=== PATIENT | female | born 1940 | race Caucasian/White ===

== ENCOUNTER → 2016-09-15 | Outpatient (CLI) | payer MEDICARE, OTHER | LOC: GMAM 17:49 | PROVIDERS: ATTEND Family Medicine | DX: G44.209 Tension-type headache, unspecified, not intractable (principal) ==

== ENCOUNTER → 2016-09-16 | Outpatient (CLI) | payer MEDICARE, OTHER ==
--- NOTE | 2016-09-16 11:29 | MRI ---
EXAM DESCRIPTION: Brain MRI. CLINICAL HISTORY: Two months of headaches comma continuous every day. COMPARISON: None. TECHNIQUE: Multiplanar, multisequence MR images were acquired without IV contrast. FINDINGS: The midline structures are unremarkable. Negative for Chiari malformation. Mild degenerative change about the dens. No restricted diffusion is noted on today's study. Flow voids are maintained within the intracranial vessels. FLAIR sequences reveal only mild involutional changes related age. No evidence of periventricular white matter disease from chronic microvascular ischemic change. The basilar cisterns are widely patent. No paranasal sinus disease. The orbits and globes are. Mastoid air cells are clear. 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 IMPRESSION: No findings to account for patient's headache. Mild involutional changes related age. No evidence of chronic microvascular ischemic change. Electronically signed by: Ghassan Rosario MD 09/16/2016 11:26
== END ==
LOC: MRI 06:39
PROVIDERS: ATTEND Family Medicine
DX: G44.201 Tension-type headache, unspecified, intractable (principal)

== ENCOUNTER → 2016-09-17 | Outpatient (CLI) | payer MEDICARE, OTHER | END | disposition home or self-care (01) | LOC: GMAM 11:24 | PROVIDERS: ATTEND Family Medicine | DX: G44.201 Tension-type headache, unspecified, intractable (principal) ==

== ENCOUNTER → 2016-09-21 | Outpatient (CLI) | payer MEDICARE, OTHER | END | disposition home or self-care (01) | LOC: GMAM 10:35 | PROVIDERS: ATTEND Family Medicine | DX: G44.209 Tension-type headache, unspecified, not intractable (principal); G44.201 Tension-type headache, unspecified, intractable ==

== ENCOUNTER → 2016-11-11 | Outpatient (CLI) | payer MEDICARE, OTHER ==
--- NOTE | 2016-11-12 09:41 | MRI ---
EXAM DESCRIPTION: Shoulder,Left CLINICAL HISTORY: 76 years, Female, shoulder pain radiating down the arm to the elbow with limited range of motion. No history of trauma. COMPARISON: None TECHNIQUE: MRI of the left shoulder was performed with multiplanar multi sequence imaging according to our usual protocol. FINDINGS: There is a small left shoulder joint effusion. There is also subacromial and subdeltoid bursal effusions. Evaluation of the rotator cuff shows a very high-grade partial-thickness tear of the supraspinatus and infraspinatus. These are articular surface partial-thickness tears. The supraspinatus tear is for all practical purposes full-thickness with only a minor thin remaining West of tendon on the bursal side. The bursal surface tear is delaminated retracted on the order of about 13 mm there is granulation tissue in the gap. Subscapularis shows advanced tendinopathy but no tear observed. There is significant volume loss of the supraspinatus and infraspinatus muscle bellies and there is grade 2 fatty marbling observed. Degenerative diffuse scuffing of the glenoid labrum is present. Long head biceps is intact at the biceps labral complex but there is a longitudinal split thickness tear of the long head biceps. AC joint shows moderate capsular thickening and edema. There is a small joint effusion. The patient has a type III acromion process with slight anterior and lateral downsloping. IMPRESSION: 1. Very high-grade partial thickness articular surface tears of supraspinatus and infraspinatus with advanced subscapularis tendinopathy 2. Degenerative labral changes and longitudinal split-thickness tear of long head biceps 3. Glenohumeral effusion and subacromial and subdeltoid bursal effusions Electronically signed by: Christiano Winchester MD 11/12/2016 9:40 AM CDT
== END | disposition home or self-care (01) ==
LOC: MRI 12:45
PROVIDERS: ATTEND Family Medicine
DX: M75.102 Unspecified rotator cuff tear or rupture of left shoulder, not specified as traumatic (principal); M25.512 Pain in left shoulder; M25.412 Effusion, left shoulder

== ENCOUNTER → 2017-02-04 | Outpatient (CLI) | payer MEDICARE, OTHER ==
--- NOTE | 2017-02-04 18:04 | CT ---
EXAM: Chest w/Contrast CLINICAL INDICATION: 76-year-old female with shortness of breath. COMPARISON: None. EXAMINATION: CT of the chest was performed with intravenous contrast. This exam was performed according to our departmental dose optimization program which includes use of automated exposure control, adjustment of the mA and/or kV according to patient size and/or use of iterative reconstruction technique. FINDINGS: Chest: Evaluation through the lungs reveals no focal opacity, pleural effusion or pneumothorax. RIGHT upper lobe pulmonary micronodule measuring 3 mm, (series 2, image 30). RIGHT patchy groundglass foci of the RIGHT upper lobe may be secondary to scarring, sequela of infectious or inflammatory process. Mild reticulonodular opacification of the dependent lower lobe may represent dependent atelectasis. Correlation with interstitial lung disease protocol may be considered. Small hiatal hernia. There is minimal dependent basilar atelectasis and scarring. The tracheobronchial airways are patent. No significant mediastinal or axillary lymphadenopathy by CT measurement criteria. Limited evaluation of the upper abdomen shows no acute intra-abdominal abnormalities. Focal area of hypoattenuation at the level of the LEFT kidney hilum exophytic and measuring approximately 12 mm with hypoattenuating contents suggestive of a simple cyst. Cholecystectomy clips. The osseous structures reveal diffuse demineralization and degenerative change. IMPRESSION: 1. The lungs are clear without focal opacity, pleural effusion or pneumothorax. 2. No specific findings are noted to suggest etiology of the patient's shortness of breath. 3. RIGHT upper lobe pulmonary micronodule measuring 3 mm. 4. RIGHT patchy groundglass foci of the RIGHT upper lobe may be secondary to scarring, sequela of infectious or inflammatory process. 5. Mild reticulonodular opacification of the dependent lower lobe may represent dependent atelectasis. Correlation with interstitial lung disease protocol may be considered. 2017 Fleischner Society Recommendations for Single Solid Lung Nodule Follow-Up based on size (average of long- and short-axis diameters) <6 mm Low-Risk Patient: No routine follow-up <6 mm High-Risk Patient: Optional CT at 12 months 6-8 mm Low-Risk Patient: CT at 6-[address] at 18-24 months 6-8 mm High-Risk Patient: CT at 6-[address] at 18-24 months >8 mm Low-Risk Patient: Consider CT, PET/CT or tissue sampling at 3 months >8 mm High-Risk Patient: Same as for low-risk patient Electronically signed by: Josie Curtis MD 02/04/2017 6:03 PM CDT Workstation: [id number]
== END | disposition home or self-care (01) ==
LOC: GMAM 12:17
PROVIDERS: ATTEND Family Medicine
DX: R06.02 Shortness of breath (principal); R31.21 Asymptomatic microscopic hematuria

== ENCOUNTER → 2017-02-19 | Outpatient (CLI) | payer MEDICARE, OTHER | END | disposition home or self-care (01) | LOC: LAB.O 13:56 | PROVIDERS: ATTEND Family Medicine | DX: R05 Cough (principal) ==

== ENCOUNTER → 2017-02-23 | Outpatient (CLI) | payer MEDICARE, OTHER ==
--- NOTE | 2017-02-23 16:34 | CT ---
EXAM DESCRIPTION: CT ABDOMEN AND PELVIS WITHOUT AND WITH CONTRAST CLINICAL HISTORY: MICROSCOPIC HEMATURIA COMPARISON: None Available. TECHNIQUE: CT of the abdomen and pelvis are performed prior to and during IV bolus administration of nonionic contrast. Oral contrast media was not utilized This exam was performed according to our departmental dose-optimization program, which includes automated exposure control, adjustment of the mA and/or kV according to patient size and/or use of iterative reconstruction technique. FINDINGS: Noncontrast imaging of the abdomen and pelvis demonstrates mild scarring or atelectasis or fibrosis in the posterior lung bases, particularly medially on the right. No consolidation is noted. The gallbladder is surgically absent and a small benign cortical cyst posteriorly involving the left kidney is noted without evidence of stone disease or hydronephrosis. A modest retrocardiac hiatal hernia is noted. The liver normally enhances without ductal dilation or mass. Small normal spleen is present. The pancreas normally enhances without cystic or solid lesion and no adrenal mass is noted. Kidneys normally enhance. Small benign cyst posteriorly involving the upper pole left kidney is benign in appearance and requires no further workup. No renal obstruction is seen. Aortic atherosclerosis and a normal appearance of the vena cava and remainder of the retroperitoneum is noted. Small and large bowel caliber is normal with extensive diverticulosis of the left colon with occasional diverticula seen in the remainder of the colon. No evidence of bowel obstruction or mass is seen. The uterus is surgically absent. Small amount of air in the vaginal fornix is noted and of uncertain significance. Inflammatory changes to suggest a colovaginal fistula is not apparent. The bladder is decompressed and not well evaluated. The anterior abdominal wall is unremarkable. Advanced multilevel degenerative disc disease and vacuum phenomenon with normal alignment of the spine is noted. No destructive changes are noted. IMPRESSION: 1. Extensive left colonic and scattered colonic diverticulosis without changes of acute diverticulitis. 2. Normal appearance of the kidney and collecting system with small benign cyst upper pole of the left kidney with collapse and decompressed bladder with no gross abnormality. 3. Small hiatal hernia and surgical absence of the gallbladder and uterus. Incidental note of small amount of air in the vaginal fornix suggest recent pelvic examination. Secondary signs to suggest a colovaginal fistula are not apparent. 4. Advanced degenerative changes throughout the spine. Electronically signed by: Desmond Ruiz MD 02/23/2017 4:28 PM CDT
== END ==
LOC: CT 07:55
PROVIDERS: ATTEND Family Medicine
DX: R31.29 Other microscopic hematuria (principal); K57.30 Diverticulosis of large intestine without perforation or abscess without bleeding; K44.9 Diaphragmatic hernia without obstruction or gangrene; Z90.49 Acquired absence of other specified parts of digestive tract; Z90.710 Acquired absence of both cervix and uterus

== ENCOUNTER → 2017-04-29 | Outpatient (CLI) | payer MEDICARE, OTHER | END | disposition home or self-care (01) | LOC: LAB.O 13:42 | PROVIDERS: ATTEND Psychiatry & Neurology Neurology | DX: G61.81 Chronic inflammatory demyelinating polyneuritis (principal); E78.5 Hyperlipidemia, unspecified; G47.30 Sleep apnea, unspecified; M31.6 Other giant cell arteritis; G60.3 Idiopathic progressive neuropathy ==

== ENCOUNTER → 2017-06-04 | Outpatient (CLI) | payer MEDICARE, OTHER ==
--- NOTE | 2017-06-04 17:17 | US ---
EXAM DESCRIPTION: Soft Tissue,Head/Neck CLINICAL HISTORY: NECK MASS COMPARISON: None Available. TECHNIQUE: Transcutaneous scanning: Two-dimensional and Doppler modes. FINDINGS: Multiple heterogeneous fatty density mass is in the right subcutaneous tissues. Similar density to the surrounding fat. Nonvascular. No echogenic centers. No cysts. No parenchymal edema. IMPRESSION: Most likely small lipomas in the subcutaneous adipose tissue. Consider follow-up ultrasound imaging if mass is enlarged. Electronically signed by: Jp Pelaez MD 06/04/2017 5:15 PM CDT
== END | disposition home or self-care (01) ==
LOC: US 12:50
PROVIDERS: ATTEND Family Medicine
DX: D48.5 Neoplasm of uncertain behavior of skin (principal)

== ENCOUNTER → 2018-06-08 | Outpatient (CLI) | payer MEDICARE, OTHER ==
--- NOTE | 2018-06-08 11:16 | US ---
US HEAD NECK SOFT TISSUE CLINICAL STATEMENT: SUBCUTANEOUS NODULES.. Palpable lump posterior right neck 4 6-8 months. No pain. COMPARISON: Previous ultrasound right posterior neck 06/04/2017. FINDINGS: Homogeneous distinct solid mass slightly more echogenic than the adjacent adipose tissue with parallel orientation and predominantly posterior enhancement features. 1.6 x 0.4 x 1.9 cm. Surrounded by echogenic capsular tissues and circumscribed. Nonvascular. There may be a second mass on the posterior aspect of this mass which was measured on the prior study. No significant enlargement seen in these masses compared to the prior study. No distinct cyst. No parenchymal edema or large calcifications. IMPRESSION: 1. Probable lipomas seen in the right posterior neck adipose tissue layer, with no significant change in size compared to the prior study one year ago. Electronically signed by: Jp Pelaez MD 06/08/2018 11:15 AM CDT
== END ==
LOC: US 09:30
PROVIDERS: ATTEND Family Medicine
DX: R22.1 Localized swelling, mass and lump, neck (principal)

== ENCOUNTER → 2018-12-12 | Outpatient (CLI) | payer MEDICARE, OTHER ==
--- NOTE | 2018-12-12 16:02 | CT ---
EXAM: Chest w/Contrast CLINICAL HISTORY: PULMONARY NODULE COMPARISON STUDY: CT chest February 04, 2017 TECHNICAL: Post contrast CT images were performed through the chest. Sagittal and coronal reconstructions were acquired. FINDINGS: Soft tissue or mediastinal windows demonstrate no mass or lymphadenopathy. The heart is not enlarged. The aorta is non-dilated. There is no sign of an aortic dissection. The pulmonary arterial system as imaged is negative. Cholecystectomy clips are present. There is a mild diffuse decreased density of the liver. Small hiatal hernia is present. There are [id number] diffuse degenerative disc changes of the thoracic spine. Pulmonary parenchymal windows show no acute abnormality or change. The tiny nodule in the right upper lobe is benign and requires no further evaluation. The nodule in the anterior aspect of the left upper lobe measures 3 mm and was previously 5 mm. Given its stability, no further follow-up is recommended. There are no new nodules. Linear changes in each lung base and some peripheral interstitial prominence are similar to the previous exam. There is no effusion. IMPRESSION: 1. 3 mm left upper lobe nodule , tiny right upper lobe nodule are stable in require no further evaluation. 2. Mild bibasilar chronic interstitial lung disease. 3. Small hiatal hernia. 4. Mild fatty infiltration liver. This exam was performed according to our departmental dose-optimization program, which includes automated exposure control, adjustment of the mA and/or kV according to patient size and/or use of iterative reconstruction technique. Electronically signed by: Jim Terrell MD 12/12/2018 4:00 PM CDT
== END ==
LOC: RAD 10:16
PROVIDERS: ATTEND Family Medicine
DX: R91.1 Solitary pulmonary nodule (principal); J84.9 Interstitial pulmonary disease, unspecified; K44.9 Diaphragmatic hernia without obstruction or gangrene; K76.0 Fatty (change of) liver, not elsewhere classified

== ENCOUNTER → 2019-05-30 | Outpatient (CLI) | payer MEDICARE, OTHER ==
--- NOTE | 2019-05-31 15:10 | US ---
EXAM DESCRIPTION: Soft Tissue,Head/Neck: ULTRASOUND. CLINICAL HISTORY: 79 years Female Benign lipomatous neoplasm of other sites COMPARISON: Ultrasound soft tissue head and neck May 2018. TECHNIQUE: Transcutaneous scanning: Roman-scale and Doppler modes. FINDINGS: Region of palpation posterior right neck. 2.3 x 1.6 x 0.6 centimeters. Circumscribed capsule and homogeneous mass similar to the adjacent subcutaneous adipose tissue and consistent with a lipoma. No distinct cyst or large calcifications. No abnormal vascularity. Similar appearance compared to the prior study. This mass volume increased to 1.1 mL compared to the prior mass volume 0.7 mL. IMPRESSION: Lipoma in the posterior right neck adipose tissue has increased in size since the prior study, but otherwise stable appearance. Electronically signed by: Jp Pelaez MD 05/31/2019 3:09 PM CDT
== END ==
LOC: US 13:55
PROVIDERS: ATTEND Family Medicine
DX: D17.0 Benign lipomatous neoplasm of skin and subcutaneous tissue of head, face and neck (principal); Z78.0 Asymptomatic menopausal state

== ENCOUNTER → 2019-08-22 | Outpatient (CLI) | payer MEDICARE, OTHER | LOC: LAB.O 08-21 13:51 | PROVIDERS: ATTEND Family Medicine | DX: J18.1 Lobar pneumonia, unspecified organism (principal) ==

== ENCOUNTER → 2020-02-15 | Outpatient (CLI) | payer MEDICARE, OTHER | LOC: GMAM 10:46 | PROVIDERS: ATTEND Family Medicine | DX: D51.9 Vitamin B12 deficiency anemia, unspecified (principal); E55.9 Vitamin D deficiency, unspecified; I10 Essential (primary) hypertension ==

== ENCOUNTER → 2020-02-20 | Outpatient (CLI) | payer MEDICARE, OTHER | LOC: GMAM 16:43 | PROVIDERS: ATTEND Family Medicine | DX: D64.9 Anemia, unspecified (principal) ==

== ENCOUNTER → 2020-08-06 | Outpatient (CLI) | payer MEDICARE, OTHER ==
--- NOTE | 2020-08-06 14:41 | CT ---
EXAM DESCRIPTION: Chest w/o Contrast CLINICAL HISTORY: 80 years, Female, solitary pulmonary nodule COMPARISON: Previous CT of the chest December 12, 2018 TECHNIQUE: Thin-section noncontrast axial CT images are obtained according to our protocol. Reconstructed MPR images are created and reviewed as well. FINDINGS: Lungs: No consolidating pulmonary infiltrate or groundglass infiltrate. Previous nodule in the anterior segment right upper lobe has resolved and now appears to represent a linear scar (axial image 45, series 4). In the anterior segment left upper lobe, previous study showed subpleural nodule which measured 3.5 mm. On the present study a nodule is present in this area measures 3.5 mm unchanged. Linear scarring in the right middle lobe. Subpleural fibrotic changes are seen in the left upper lobe and in both lower lobes. Configuration appears stable compared to previous study. No increased area of consolidation to suggest an acute superimposed pneumonitis. Small subpleural nodule in the lateral basal segment left lower lobe. This measures 3.5 mm. This is new compared to previous study. With a new nodule, continued follow-up is necessary with repeat CT chest in six months. Mediastinum: Lymph nodes are normal in size. Normal vascular contours. Heart size is normal with no pericardial effusion. Extensive coronary arterial calcification Chest wall/axilla: No mass or adenopathy. Dense glandular breast tissue bilaterally. Lower neck/supraclavicular: No mass or adenopathy. Normal thyroid gland. Upper abdomen: Left renal cyst measures 1.4 cm. Otherwise upper abdominal viscera. Coronal and sagittal reformatted images confirm the findings. Moderate hiatal hernia is present in the lower chest. IMPRESSION: Resolved pulmonary nodule in the right upper lobe. Stable pulmonary nodule anterior segment left upper lobe 3.5 mm. New pulmonary nodule 3.5 mm in the left lower lobe. Six month follow-up chest CT recommended. 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 Moderate hiatal hernia. This exam was performed according to our departmental dose-optimization program, which includes automated exposure control, adjustment of the mA and/or kV according to patient size and/or use of iterative reconstruction technique. Total DLP equals 387.4 mGycm. Electronically signed by: Chong Santos MD 08/06/2020 2:39 PM [facility]
== END ==
LOC: CT 09:47
PROVIDERS: ATTEND Family Medicine
DX: R91.8 Other nonspecific abnormal finding of lung field (principal); J84.10 Pulmonary fibrosis, unspecified; K44.9 Diaphragmatic hernia without obstruction or gangrene

== ENCOUNTER → 2020-09-02 | Outpatient (CLI) | payer MEDICARE, OTHER | LOC: GMAM 10:58 | PROVIDERS: ATTEND Family Medicine | DX: D51.9 Vitamin B12 deficiency anemia, unspecified (principal); E55.9 Vitamin D deficiency, unspecified; I10 Essential (primary) hypertension; R73.9 Hyperglycemia, unspecified; E78.2 Mixed hyperlipidemia ==